=== PATIENT | female | born 1960 | race Caucasian/White ===

== ENCOUNTER 2022-08-05 19:03 | Emergency (ER) | payer OTHER ==
[~2022-08-05 19:03] MED LIST: ASPIRIN EC81 MG PO; KLONOPIN0.5 MG PO; MAG-OXIDE 400M400 MG PO; NORVASC5 MG PO; PLAVIX75 MG PO; REPATHA SY140 MG/1 M SC; TOPROL XL 25MG25 MG PO
[2022-08-05 21:29] LABS: BASOPHIL 0.5 % (0-2); EOSINOPHIL 3.4 % (0-5); HCT 46.9 % (37.0-47.0); HGB 16.2 g/dl (12.5-16.0); LYMPHOCYTE 16.2 % (15-48); MCH 30.5 pg (25.0-31.0); MCHC 34.5 g/dL (32.0-36.0); MCV 88.3 fL (78.0-100.0); MPV 9.5 fL (6.0-9.5); NEUTROPHIL 73.6 % (41-80); NRBC 0; PLT 253 K/uL (150-400); RBC 5.31 M/uL (4.20-5.40); RDW 13.5 % (11.5-14.0); WBC 9.2 K/uL (4.0-10.5)
[2022-08-05 21:48] LABS: BUN/CREAT RATIO (CALC) 21.1 RATIO; CREATININE 0.57 mg/dL (0.51-0.95); POTASSIUM 3.8 mmol/L (3.5-5.1)
== END 2022-08-05 23:20 | disposition home or self-care (01) ==
LOC: FER 19:03
PROVIDERS: Nurse Practitioner Family
DX: I10 Essential (primary) hypertension (principal); G89.29 Other chronic pain; Z88.0 Allergy status to penicillin; Z88.5 Allergy status to narcotic agent; Z88.8 Allergy status to other drugs, medicaments and biological substances; Z28.310 Unvaccinated for COVID-19
CPT/HCPCS: 36415; 80048; 84484; 85025; 93005; J1885; J2405